=== PATIENT | female | born 1970 | race Caucasian/White ===

== ENCOUNTER 2017-03-06 16:42 | Emergency (ER) | payer OTHER ==
[~2017-03-06 16:42] MED LIST: ACULAR10 ML OD; ALBUTEROL17 GM INH; ALPRAZOLAM PO; AMOXICILLIN875 MG; BUSPAR5 M1 PO; DARVOCET-N 1001 TAB PO; EFFEXOR XR PO; ERYTHROMYCIN B500 MG PO; ERYTHROMYCIN O3.5 GM OD; FLEXERIL PO; HCTZ PO; IBUPROFEN800 MG PO; KETOPROFEN PO; LEVAQUIN750 M1 PO; LORTAB 10-5001 EACH PO; MOBIC PO; PAXIL PO; PAXIL10 MG; PAXIL10 MG PO; PERCOCET5/325 PO; PHENERGAN DM1 ML PO; PREDNISONE PO; PROZAC PO; SYNTHROID PO; TOBREX5 ML OP; VIBRAMYCIN100 M1; VIBRAMYCIN100 M1 PO; XANAX1 MG PO; ZANAFLEX PO; [UNRECOGNIZED DRUG - OTHER]
[2017-03-06 17:34] LABS: INFLUENZA A NEG (NEG); INFLUENZA B NEG (NEG)
== END 2017-03-06 18:00 | disposition home or self-care (01) ==
LOC: SED 16:42
PROVIDERS: Physician Assistant
DX: J02.0 Streptococcal pharyngitis (principal); J45.909 Unspecified asthma, uncomplicated; F32.9 Major depressive disorder, single episode, unspecified; E03.9 Hypothyroidism, unspecified; F17.210 Nicotine dependence, cigarettes, uncomplicated; Z98.890 Other specified postprocedural states; Z88.5 Allergy status to narcotic agent; Z88.8 Allergy status to other drugs, medicaments and biological substances
CPT/HCPCS: 87804; 87880; 96372; 99283; J0561

== ENCOUNTER 2017-04-22 18:25 | Emergency (ER) | payer OTHER ==
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
[2017-04-22 19:22] LABS: BASOPHIL% 0.6 % (0-2.5); EOSINOPHIL# 0.1 X10e3 (0-0.7); HEMATOCRIT 40.4 % (35.0-45.0); HEMOGLOBIN 13.8 gm/dL (12.0-16.0); LYMPHOCYTE# 1.9 X10e3 (1.0-3.5); LYMPHOCYTE% 24.5 % (17.0-45.0); MEAN CELL VOLUME 88.8 FL (83-96); MEAN CORPUSCULAR HEMOGLOBIN 30.3 PG (28-34); MEAN CORPUSCULAR HGB CONC 34.1 g/dL (30-36); MEAN PLATELET VOLUME 7.5 FL (6.5-11.5); MONOCYTE# 0.5 X10e3 (0-1.0); MONOCYTE% 6.6 % (3.0-12.0); NEUTROPHIL# 5.2 X10e3 (1.5-7.1); NEUTROPHIL% 67.3 % (40-75); PLATELET COUNT 323 X10e3 (140-420); RED BLOOD COUNT 4.55 X10e (3.90-5.30); RED CELL DISTRIBUTION WIDTH 13.7 % (11.0-15.5); WHITE BLOOD COUNT 7.8 X10e3 (4.0-10.5)
[2017-04-22 19:24] LABS: DIFF IND NO
[2017-04-22 19:38] LABS: ALBUMIN SERUM 3.9 g/dL (3.5-5.0); BILIRUBIN,TOTAL 0.2 mg/dL (0.2-2.0); CALCIUM SERUM 8.9 mg/dL (8.4-10.2); CREATININE SERUM 0.8 mg/dL (0.6-1.4); GLOM FILT RATE Estimated 87.9 mL/min (>60); POTASSIUM 3.4 mmol/L (3.5-5.1); PROTEIN TOTAL SERUM 7.1 g/dL (6.0-8.3)
== END 2017-04-22 22:56 | disposition home or self-care (01) ==
LOC: SED 18:25
PROVIDERS: Physician Assistant
DX: S22.42XA Multiple fractures of ribs, left side, initial encounter for closed fracture (principal); I10 Essential (primary) hypertension; Z98.890 Other specified postprocedural states; J45.909 Unspecified asthma, uncomplicated; F17.210 Nicotine dependence, cigarettes, uncomplicated; Z88.5 Allergy status to narcotic agent; Z79.899 Other long term (current) drug therapy; V89.2XXA Person injured in unspecified motor-vehicle accident, traffic, initial encounter; Y93.89 Activity, other specified; Y92.410 Unspecified street and highway as the place of occurrence of the external cause
CPT/HCPCS: 70450; 71250; 74177; 80053; 85025; 96360; 99284; Q9967